=== PATIENT | male | born 2000 | race Caucasian/White ===

== ENCOUNTER 2021-06-06 16:39 | Emergency (ER) | payer BC ==
[2021-06-06] MEDS: Sodium Chloride 0.9% 1,000 ML IV ONE (17:22)
[2021-06-06 17:24] LABS: BLOOD UREA NITROGEN,BUN 12 mg/dL (7.0-18.0); CARBON DIOXIDE,CO2 25.1 mmol/L (21.0-32.0); CHLORIDE,CL 100 mmol/L (98-107); GLUCOSE RANDOM 120 mg/dL (74-106); POTASSIUM,K 3.8 mmol/L (3.5-5.1); SODIUM,NA 138 mmol/L (136-148)
[2021-06-06] MEDS: Acetaminophen 325 MG Tab PO ONE (19:10)
== END 2021-06-06 20:04 | disposition home or self-care (01) ==
LOC: MW.ED 16:39
DX: R56.9 Unspecified convulsions (principal)
CPT/HCPCS: 36415; 70450; 80053; 80305; 80307; 81003; 82550; 83735; 84100; 85025; 93005; 99285; A9270; J7030